=== PATIENT | female | born 1995 | race African-American/Black ===

== ENCOUNTER 2021-10-21 09:55 | Emergency (ER) | payer OTHER ==
[~2021-10-21] VITALS: Ht 165.1 cm; Wt 61.2 kg
[2021-10-21 10:02] VITALS: BP 156/90
--- NOTE | 2021-10-21 10:19 | NUR ---
PT SEEN AND EXAMINED BY .
--- NOTE | 2021-10-21 11:49 | NUR ---
Patient discharged to home in stable condition. Written and verbal after care instructions given. Patient verbalizes understanding of instruction.
== END 2021-10-21 11:51 | disposition home or self-care (01) ==
LOC: ER 09:57
DX: T75.4XXA Electrocution, initial encounter (principal); W86.8XXA Exposure to other electric current, initial encounter; Y93.89 Activity, other specified; Y92.89 Other specified places as the place of occurrence of the external cause; Y99.8 Other external cause status